=== PATIENT | female | born 1995 | race Caucasian/White ===

== ENCOUNTER 2021-03-30 17:16 | Emergency (ER) | payer OTHER ==
[2021-03-30 17:32] VITALS: BP 138/89
--- NOTE | 2021-03-30 17:48 | ED Physician Documentation ---
PD HPI HEENT - Stated complaint Stated Complaint: POST OP DENTAL PX/BLEEDING - Chief complaint Chief Complaint: Heent - History obtained from History obtained from: Patient - History of Present Illness Timing - onset: Today Timing - duration: Hours Timing - details: Abrupt onset Location: Tooth (she had wisdom teeth out recently and had some swelling left lower, went to dentist today and he lanced the area and stitched it. Pt says it started bleeding a lot and the dentist is now closed. Told to come to ER. BLeeding seems slowed now with gauze in area.) Associated symptoms: No: Fever, Swollen nodes Recently seen: Clinic (dentist at 1 pm today.) Review of Systems Constitutional: denies: Fever, Chills Throat: denies: Swollen tonsils PD PAST MEDICAL HISTORY - Past Medical History Cardiovascular: None Respiratory: None - Present Medications Home Medications: Ambulatory Orders Medication Instructions Recorded Confirmed Clindamycin [Cleocin] 300 mg PO Q6H 03/30/21 03/30/21 - Allergies Allergies/Adverse Reactions: Allergies Allergy/AdvReac Type Severity Reaction Status Date / Time amoxicillin Allergy Rash Verified 03/30/21 17:32 Sulfa (Sulfonamide Allergy Rash Verified 03/30/21 17:32 Antibiotics) PD ED PE NORMAL - Vitals Vital signs reviewed: Yes - General General: Alert and oriented X 3, Well developed/nourished - HEENT HEENT: Pharynx benign, Dentition benign, Other (the left lower gum line has incision from prior 3rd molar area along buccal gum to in front of 2nd molar. [address] Minimal bleeding now. No purulence. ) - Neck Neck: Supple, no meningeal sign, No adenopathy - Cardiac Cardiac: RRR - Respiratory Respiratory: Clear bilaterally Results - Vitals Vitals: Vital Signs - 24 hr 03/30/21 17:27 Temperature 36.3 C L Heart Rate 71 Respiratory 18 Rate Blood Pressure 138/89 H O2 Saturation 100 Oxygen O2 Source Room air PD MEDICAL DECISION MAKING - ED course Complexity details: considered differential (her gum bled after the incision earlier today but is not bleeding now. She declined pain meds here. ), d/w patient Departure - Departure Disposition: 01 Home, Self Care Clinical Impression: Surgical wound hemorrhage after dental procedure Condition: Stable Record reviewed to determine appropriate education?: Yes Comments: The wound looks what I would expect after having it lanced and stitched. I do not see any opening of the wound. Minimal bleeding at this time. I presume you had a small clot in the area that opened the wound when you were looking at it. It appears okay at this time. Continue the instructions from the dentist. Discharge Date/Time: 03/30/21 18:16
== END 2021-03-30 18:16 | disposition home or self-care (01) ==
LOC: ED 17:16
DX: K91.840 Postprocedural hemorrhage of a digestive system organ or structure following a digestive system procedure (principal)
CPT/HCPCS: 99281